=== PATIENT | male | born 1985 | race Caucasian/White ===

== ENCOUNTER 2021-06-01 18:09 | Emergency (ER) | payer OTHER ==
[~2021-06-01] VITALS: Ht 193 cm; Wt 104.3 kg
[2021-06-01 18:34] LABS: PLATELET COUNT 69 thou/uL (150-400); WBC 2.2 thou/uL (4.0-11.0)
[2021-06-01 18:36] LABS: HEMATOCRIT 37.5 % (42.0-52.0); HEMOGLOBIN 13.5 gm/dL (14.0-18.0); MCH 31.1 pg (26.0-34.0); MCHC 35.9 g/dL (28.0-37.0); MCV 86.7 fL (80.0-100.0); RBC 4.33 mil/uL (4.50-6.00); RDW 12.8 % (10.5-14.5)
[2021-06-01 18:46] LABS: ALBUMIN 3.3 g/dL (3.4-5.0); CALCIUM 7.7 mg/dL (8.5-10.1); CREATININE 0.9 mg/dL (0.7-1.3); TOTAL BILIRUBIN 0.9 mg/dL (0.2-1.0); TOTAL PROTEIN 6.5 g/dL (6.4-8.2)
[2021-06-01 18:48] LABS: POTASSIUM 2.8 mmol/L (3.5-5.1)
[2021-06-01 19:11] LABS: ABSOLUTE NEUTROPHILS 1.2 thou/uL (1.4-8.2); ATYPICAL LYMPHS 1 %; PLATELET ESTIMATE DECREASED
[2021-06-01 22:17] LABS: CALCIUM 7.7 mg/dL (8.5-10.1); CREATININE 0.8 mg/dL (0.7-1.3); POTASSIUM 3.7 mmol/L (3.5-5.1); URINE BILIRUBIN NEGATIVE (Negative); URINE BLOOD 2+ (Negative); URINE CLARITY CLEAR; URINE COLOR YELLOW; URINE GLUCOSE-RANDOM* NEGATIVE (Negative); URINE KETONES TRACE (Negative); URINE LEUKOCYTES-REFLEX NEGATIVE (Negative); URINE NITRITE-REFLEX NEGATIVE (Negative); URINE PROTEIN (DIPSTICK) 1+ (Negative)
[2021-06-01 22:36] LABS: AMP/METHAMP Negative (Negative); BARBITURATES Negative (Negative); BENZODIAZEPINES Negative (Negative); COCAINE Negative (Negative); METHADONE Negative (Negative); OPIATES Negative (Negative); PCP Negative (Negative)
[2021-06-01 22:57] LABS: BACTERIA-REFLEX 1-9 Few /HPF (None Seen); MUCUS 4-6 Moderate strn/LPF (None Seen); SQUAMOUS 4-10 Moderate /LPF (0-3); URINE WBC-REFLEX 0-5 Rare /HPF (0-5)
[2021-06-01 22:58] LABS: CELLULAR CASTS 0-3 Few /LPF (None Seen); CRYSTALS None Seen /LPF (None Seen)
[2021-06-01] MEDS ORDERED: ONDANSETRON HCL4 M2 PO (23:34)
[2021-06-01 23:55] VITALS: BP 101/49
--- NOTE | 2021-06-02 07:14 | EKG ---
[address] [address] ELECTROCARDIOGRAM REPORT Name: RICARDAPEDROKAMALA BOWEN Room #: [id number] Admission: 06/01/21 Attend Phys: Discharge: 06/01/21 Date of : 85 Report #: [id number] [facility] ED Test Date: 2021-06-01 Test Time: 19:01:42 Pat Name: PEDRO CHOWDARY Department: Room: Gender: [employer] Inspector: : 1985 Requested By: Que Lacy Order Number: [id number] MD: Gutierrez Suarez Measurements Intervals [place] Rate: 86 P: 15 AK: 148 QRS: 40 QRSD: 105 T: 38 QT: 344 QTc: 412 Interpretive Statements Sinus rhythm No previous ECG available for comparison Electronically Signed On 06-02-2021 7:14:12 CDT by Gutierrez Suarez [email or web address] <ELECTRONICALLY SIGNED> By: Gutierrez Suarez MD, [facility] 06/02/21 0714 [id number] Gutierrez Suarez MD, FACC /EPI
== END 2021-06-01 23:56 | disposition home or self-care (01) ==
LOC: ER 18:09
PROVIDERS: Emergency Medicine; Nurse Practitioner
DX: R53.1 Weakness (principal); E86.0 Dehydration; E87.6 Hypokalemia